=== PATIENT | female | born 1965 | race American Indian/Alaskan Native ===

== ENCOUNTER 2021-10-19 15:28 | Emergency (ER) | payer OTHER ==
[~2021-10-19] VITALS: Ht 165.1 cm; Wt 118.8 kg
[2021-10-19] MEDS ORDERED: ONDANSETRON ODT4 MG PO (18:50)
== END 2021-10-19 19:06 | disposition home or self-care (01) ==
LOC: ED 15:28
DX: R19.7 Diarrhea, unspecified (principal); R11.2 Nausea with vomiting, unspecified; Z20.822 Contact with and (suspected) exposure to COVID-19; F17.200 Nicotine dependence, unspecified, uncomplicated
CPT/HCPCS: 99284; A9270; C9803; U0003

== ENCOUNTER 2022-11-15 14:05 | Emergency (ER) | payer OTHER ==
[~2022-11-15] VITALS: Ht 165.1 cm; Wt 118.1 kg
[~2022-11-15 14:05] MED LIST: ONDANSETRON ODT4 MG PO
[2022-11-15] MEDS ORDERED: NAPROSYN500 MG PO (18:53)
== END 2022-11-15 19:02 | disposition home or self-care (01) ==
LOC: ED 14:05
DX: S80.12XA Contusion of left lower leg, initial encounter (principal); S80.11XA Contusion of right lower leg, initial encounter; Y04.8XXA Assault by other bodily force, initial encounter
CPT/HCPCS: 99283